=== PATIENT | female | born 1990 | race African-American/Black ===

== ENCOUNTER 2019-01-09 14:21 | Emergency (ER) | payer OTHER ==
[~2019-01-09] VITALS: Ht 139.7 cm; Wt 39.9 kg
[2019-01-09 14:40] VITALS: BP 101/73
--- NOTE | 2019-01-09 14:40 | NUR ---
ED Nurse Note: pt walked in c/o lower abd pain started before period and has been going on for awhile, pt states she has IUD in place, pt also complains of back pain as well. denies n/v/d, nor constipation at this time. ER provider aware of pt's condition, will cont monitor.
[2019-01-09 15:30] LABS: APPEARANCE,URINE CLEAR; BILIRUBIN, URINE NEGATIVE (NEGATIVE); GLUCOSE, URINE (UA) NEGATIVE (NEGATIVE); KETONES,URINE 1+ (NEGATIVE); LEUKOCYTE ESTERASE ,URINE 1+ (NEGATIVE); NITRITE,URINE NEGATIVE (NEGATIVE); PH,URINE 6 (4.5-8.0); PROTEIN,URINE NEGATIVE (NEGATIVE); UROBILINOGEN,URINE 4 MG/DL (0.0-1.0)
[2019-01-09 15:33] LABS: COLOR,URINE YELLOW
--- NOTE | 2019-01-09 16:35 | Emergency Room Report ---
History of Present Illness General Chief Complaint: Pain Source: Patient Present Illness HPI 28-year-old female presents to the emergency department complaining of 9 out of 10 severity pelvic/lower abdominal pain with vaginal discharge x2 weeks. Patient reports she was seen several days ago at [facility] had ultrasound performed which was normal and then sent home. Patient denies having pelvic exam performed and states she only had her urine tested. Patient denies fevers or chills that she reports pain with intercourse she reports recent unprotected intercourse and states she was in a relationship with somebody had multiple partners. Patient reports that in September she was diagnosed with PID and prescribed antibiotics for which she did not finish completely. Patient denies suspicion of and she also reports history of ovarian cyst in the past. Patient denies adnexal pain or tenderness. Denies genital lesions, swollen tender lymph nodes or joint pain. Patient denies nausea or vomiting. She reports several episodes of dysuria denies hematuria reports some urinary frequency denies urgency. She denies constipation or diarrhea. Pt. reports significant pain during vaginal US exam. Allergies: Coded Allergies: No Known Allergies (Unverified , 01/09/19) Patient History Past Medical History: see triage record Past Surgical History: none Pertinent Family History: none Last Menstrual Period: 12/24/18 Now: No Reviewed Nursing Documentation: PMH: Agreed; PSxH: Agreed Nursing Documentation-PMH Past Medical History: No Stated History Review of Systems All Other Systems: negative except mentioned in HPI Physical Exam Vital Signs Date Time Temp Pulse Resp B/P (MAP) Pulse Ox O2 Delivery O2 Flow Rate FiO2 01/09/19 14:28 98.1 79 16 101/73 (82) 98 Room Air Sp02 EP Interpretation: reviewed, normal General Appearance: no apparent distress, alert, GCS 15, non-toxic Head: normocephalic, atraumatic Eyes: bilateral eye normal inspection, bilateral eye PERRL ENT: hearing grossly normal, normal voice Neck: full range of motion Respiratory: chest non-tender, lungs clear, normal breath sounds, speaking full sentences Cardiovascular #1: regular rate, rhythm Gastrointestinal: normal bowel sounds, non tender, soft, non-distended, no guarding Genitourinary: normal inspection, no CVA tenderness, adnexa normal, other - postitive CMT, vaginal d/c noted Musculoskeletal: back normal, gait/station normal, normal range of motion, non- tender Neurologic: alert, oriented x3, responsive, motor strength/tone normal, sensory intact, normal gait, speech normal, grossly normal Psychiatric: judgement/insight normal Skin: normal color, no rash, warm/dry, well hydrated Lymphatic: no adenopathy Medical Decision Making PA Attestation Dr. Llamas is my supervising Physician whom patient management has been discussed with. Diagnostic Impression: Primary Impression: BV (bacterial vaginosis) Additional Impression: PID (acute pelvic inflammatory disease) ER Course 28-year-old female presents to the emergency department complaining of 9 out of 10 severity pelvic/lower abdominal pain with vaginal discharge x2 weeks. Patient reports she was seen several days ago at [facility] had ultrasound performed which was normal and then sent home. Patient denies having pelvic exam performed and states she only had her urine tested. Patient denies fevers or chills that she reports pain with intercourse she reports recent unprotected intercourse and states she was in a relationship with somebody had multiple partners. Patient reports that in September she was diagnosed with PID and prescribed antibiotics for which she did not finish completely. Patient denies suspicion of and she also reports history of ovarian cyst in the past. Patient denies adnexal pain or tenderness. Denies genital lesions, swollen tender lymph nodes or joint pain. Patient denies nausea or vomiting. She reports several episodes of dysuria denies hematuria reports some urinary frequency denies urgency. She denies constipation or diarrhea. Pt. reports significant pain during vaginal US exam. Ddx considered but are not limited to UTi , Pyelo, STI, Stone, Cystitis, vaginal laceration, vaginitis. Vital signs: are WNL, pt. is afebrile H& PE are most consistent with: Vaginitis ORDERS: - UA labs are attached - Wet Mount : Few clue cells and some bacteria. -Urine : Negative ED INTERVENTIONS: - Rocephin IM ---tx'ing for PID -Tylenol 650mg PO DISCHARGE: At this time pt. is stable for d/c to home. Will provide printed patient care instructions, and any necessary prescriptions. Care plan and follow up instructions have been discussed with the patient prior to discharge. discussed with the patient prior to discharge. Labs Test 01/09/19 15:07 Urine Color Yellow Urine Appearance Clear Urine pH 6 (4.5-8.0) Urine Specific [place] 1.015 (1.005-1.035) Urine Protein Negative (NEGATIVE) Urine Glucose (UA) Negative (NEGATIVE) Urine Ketones 1+ (NEGATIVE) Urine Blood Negative (NEGATIVE) Urine Nitrite Negative (NEGATIVE) Urine Bilirubin Negative (NEGATIVE) Urine Urobilinogen 4 MG/DL (0.0-1.0) Urine Leukocyte Esterase 1+ (NEGATIVE) Urine RBC 0-2 /HPF (0 - 2) Urine WBC 0-2 /HPF (0 - 2) Urine Squamous Epithelial Cells Few /LPF (NONE/OCC) Urine Bacteria Few /HPF (NONE) Urine Mucus Many /LPF (NONE/OCC) Urine HCG, Qualitative Negative (NEGATIVE) Chlamydia trachomatis RNA Negative (Negative) Neisseria gonorrhoeae RNA Negative (Negative) Last Vital Signs Date Time Temp Pulse Resp B/P (MAP) Pulse Ox O2 Delivery O2 Flow Rate FiO2 01/09/19 14:40 98.1 76 16 101/73 98 Room Air Status: improved Disposition: HOME, SELF-CARE Condition: Stable Scripts Metronidazole* (METROGEL-VAGINAL*) 70 Gm Gel.w.appl 1 APPL VAGIN EVERY 12 HOURS for 7 Days, #70 GM Prov: Anayeli Gibson 01/09/19 Phenazopyridine Hcl* (PYRIDIUM*) 200 Mg Tablet 200 MG ORAL THREE TIMES A DAY for 3 Days, #9 TAB 0 Refills Prov: Anayeli Gibson 01/09/19 Doxycycline Hyclate* (VIBRAMYCIN*) 100 Mg Capsule 100 MG ORAL EVERY 12 HOURS for 14 Days, #28 CAP 0 Refills Prov: Anayeli Gibson 01/09/19 Referrals: [facility],REFERRING (PCP) Departure Forms: Return to Work Return to Work Date: Jan 13, 2019 Work Restrictions: None Other Restrictions: May return Sooner if Symptoms have resolved. Return to Full Activity: Jan 13, 2019 Patient Instructions: Bacterial Vaginosis, Pelvic Inflammatory Disease, Easy-to -Read Additional Instructions: Take medications as directed. Follow up with a [facility]RE[facility] SUPERVISOR within 3-5 days, even if your symptoms have resolved. Return sooner to ED if new symptoms occur, or current symptoms become worse. - Please note that this Emergency Department Report was dictated using [employer] department supervisor technology software, occasionally this can lead to erroneous entry secondary to interpretation by the dictation equipment. Anayeli Gibson Jan 09, 2019 16:35
[2019-01-09] MEDS ORDERED: PHENAZOPYRIDIN200 MG ORAL (16:44)
[2019-01-09] MEDS ORDERED: VIBRAMYCIN100 MG ORAL (16:44)
[2019-01-09] MEDS ORDERED: Lidocaine 1% MPF 10mg/ml 5ml INJ ONE (16:45)
[2019-01-09] MEDS ORDERED: METROGEL-VAGINA70 G1 VAGIN (16:53)
[2019-01-09 16:59] VITALS: BP 110/86
--- NOTE | 2019-01-09 16:59 | NUR ---
ED Nurse Note: pt cleared to be d/c per ER provider, pt discharge and aftercare instruction provided w/ prescription, pt education done via discussion and handout, pt advised to follow up with pcp or return to ed if changes in condition, pt verbalized understanding and agrees with plan, vss, ambulatory w/ steady gait, left w/ all belongings.
== END 2019-01-09 17:00 | disposition home or self-care (01) ==
LOC: EMR 15:01
DX: N76.0 Acute vaginitis (principal); B96.89 Other specified bacterial agents as the cause of diseases classified elsewhere; N73.9 Female pelvic inflammatory disease, unspecified
CPT/HCPCS: 81003; 81025; 87210; 87491; 87590; 96372; 99284; J0696